=== PATIENT | female | born 1955 | race Caucasian/White ===

== ENCOUNTER 2022-12-27 12:44 | Emergency (ER) | payer OTHER ==
[~2022-12-27] VITALS: Ht 157.5 cm; Wt 69.2 kg
[~2022-12-27 12:44] MED LIST: ULTRACET PO
[2022-12-27] MEDS ORDERED: CLARITIN10 M1 (13:00)
[2022-12-27] MEDS ORDERED: HYDROCHLOROTHIA25 MG (13:00)
[2022-12-27] MEDS ORDERED: COZAAR25 MG (13:00)
== END 2022-12-27 17:37 | disposition home or self-care (01) ==
LOC: ER 12:44
DX: J20.9 Acute bronchitis, unspecified (principal); Z88.0 Allergy status to penicillin; E05.80 Other thyrotoxicosis without thyrotoxic crisis or storm